=== PATIENT | female | born 1995 | race African-American/Black ===

== ENCOUNTER 2017-08-07 08:56 | Inpatient (IN) | payer OTHER ==
[~2017-08-07] VITALS: Ht 160 cm; Wt 76.5 kg
[~2017-08-07 08:56] MED LIST: KEFLEX500 MG PO; NORCO 5/3251 TABLET PO
[2017-08-07 09:27] LABS: BASOPHIL (%) 0.2 % (0-1); BASOPHIL COUNT 0.1 K/uL (0-0.1); EOSINOPHIL (%) 0.1 % (0-5); IMMATURE GRANULOCYTE (%) 1.2 % (0.0-0.7); LYMPHOCYTE (%) 2.7 % (15-42); LYMPHOCYTE COUNT 1.1 K/uL (1.0-2.8); MONOCYTE (%) 2.5 % (3-12); NEUTROPHIL (%) 93.3 % (45-76); NEUTROPHIL COUNT 39.1 K/uL (1.8-6.4); PLATELET COUNT 349 K/uL (156-360)
[2017-08-07 09:32] LABS: HEMOGLOBIN 11.3 G/DL (11.9-15.5); MCH 24.5 PG (29.0-34.0); MCHC 31.4 G/DL (30.0-36.0); MCV 78.1 FL (83-99); RBC DIS.WIDTH-CV 16.7 % (11.8-14.6); RBC DIS.WIDTH-SD 47.2 % (39-53); RED BLOOD COUNT 4.61 M/uL (3.80-5.20)
[2017-08-07 09:37] LABS: ALBUMIN 4.1 g/dL (3.2-4.8); CHLORIDE 102 mEq/L (99-109); POTASSIUM 4.3 mEq/L (3.7-5.4); SODIUM 140 mEq/L (136-147)
[2017-08-07 09:40] LABS: GLUCOSE 118 mg/dL (70-99); TOTAL PROTEIN 7.9 g/dL (6.4-8.3)
[2017-08-07 09:42] LABS: TOTAL BILIRUBIN 0.3 mg/dL (0.0-1.0)
[2017-08-07 09:43] LABS: ALKALINE PHOSPHATASE 77 IU/L (3-129); CREATININE 0.9 mg/dL (0.6-1.3); GFR ESTIMATE (CALCULATED) > 59 mL/min/
[2017-08-07 09:44] LABS: UREA NITROGEN (BUN) 6 mg/dL (9-23)
[2017-08-07 09:45] LABS: AST (GOT) 42 IU/L (2-34)
[2017-08-07 09:46] LABS: ALT (GPT) 21 IU/L (3-49)
[2017-08-07 11:04] LABS: WHITE BLOOD COUNT 41.9 K/uL (4.1-10.2)
[2017-08-07 11:37] LABS: APPEARANCE SL.HAZY ((CLEAR)); BILIRUBIN NEGATIVE; BLOOD LARGE; COLOR YELLOW ((YELLOW)); GLUCOSE (STRIP) NEGATIVE; KETONES 5; LEUKOCYTES SMALL; NITRITE NEGATIVE; PROTEIN (STRIP) 30; SPECIFIC GRAVITY 1.017 (1.000-1.030)
[2017-08-07 11:48] LABS: BACTERIA RARE /HPF; EPITHELIAL CELLS 1+ /HPF; MUCUS TRACE /LPF; RED BLOOD CELLS 0-5 /HPF (0-5); UCUL ADDED? YES
[2017-08-07 21:25] VITALS: BP 125/60
[2017-08-08] VITALS (7 sets, daily range): BP systolic 94–147; BP diastolic 52–77
[2017-08-08 06:41] LABS: CHLORIDE 107 MEQ/L (99-109); CREATININE 0.6 MG/DL (0.6-1.3); GFR ESTIMATE (CALCULATED) > 59 mL/min/; GLUCOSE 94 mg/dL (70-99); SODIUM 138 MEQ/L (136-147); UREA NITROGEN (BUN) 5 mg/dL (9-23)
[2017-08-08 06:45] LABS: HEMATOCRIT 30.3 % (36.0-46.0); MCHC 30.7 G/DL (30.0-36.0); MCV 78.3 FL (83-99); PLATELET COUNT 300 K/uL (156-360); RBC DIS.WIDTH-SD 48.2 % (39-53); RED BLOOD COUNT 3.87 M/uL (3.80-5.20); WHITE BLOOD COUNT 11.1 K/uL (4.1-10.2)
[2017-08-08 06:47] LABS: HEMOGLOBIN 9.3 G/DL (11.9-15.5)
[2017-08-08 13:53] LABS: CREATINE KINASE 251 IU/L (1-294)
[2017-08-09 01:03] VITALS: BP 96/55
[2017-08-09 04:59] VITALS: BP 108/51
[2017-08-09 06:05] LABS: HEMATOCRIT 33.2 % (36.0-46.0); HEMOGLOBIN 10.4 G/DL (11.9-15.5); MCH 24.2 PG (29.0-34.0); MCHC 31.3 G/DL (30.0-36.0); MCV 77.4 FL (83-99); PLATELET COUNT 330 K/uL (156-360); RBC DIS.WIDTH-CV 17.1 % (11.8-14.6); RBC DIS.WIDTH-SD 48.2 % (39-53); RED BLOOD COUNT 4.29 M/uL (3.80-5.20); WHITE BLOOD COUNT 9.6 K/uL (4.1-10.2)
[2017-08-09 06:38] LABS: CHLORIDE 105 MEQ/L (99-109); CREATININE 0.6 MG/DL (0.6-1.3); GFR ESTIMATE (CALCULATED) > 59 mL/min/; GLUCOSE 90 mg/dL (70-99); POTASSIUM 4.1 MEQ/L (3.7-5.4); SODIUM 137 MEQ/L (136-147); UREA NITROGEN (BUN) 5 mg/dL (9-23)
[2017-08-09 07:15] VITALS: BP 103/54
[2017-08-09 11:30] VITALS: BP 116/75
[2017-08-09] MEDS ORDERED: ZYVOX600 MG PO (14:02)
== END 2017-08-09 14:53 | disposition home or self-care (01) | DRG 917 ==
LOC: EME 08:56 → EDOF 14:42 → 5WEST 14:42 → EDOF 14:42 → ENRESERV 14:44 → 5WEST 21:16
PROVIDERS: Internal Medicine; Nurse Practitioner Adult Health; Physician Assistant Medical
DX: T40.1X1A Poisoning by heroin, accidental (unintentional), initial encounter (principal); J69.0 Pneumonitis due to inhalation of food and vomit; R40.20 Unspecified coma; R78.81 Bacteremia; B95.62 Methicillin resistant Staphylococcus aureus infection as the cause of diseases classified elsewhere; L30.9 Dermatitis, unspecified; R00.0 Tachycardia, unspecified; F11.20 Opioid dependence, uncomplicated; F17.210 Nicotine dependence, cigarettes, uncomplicated
CPT/HCPCS: 71045; 71250; 74177; 80048; 80053; 80202; 81003; 82550; 83605; 85025; 85027; 87040; 87077; 87086; 87186; 87801; 93306; 99281; 99285; G0378; J2250; J2543; J3370; J7030; J7050

== ENCOUNTER 2017-09-19 14:28 | Emergency (ER) | payer OTHER ==
[~2017-09-19] VITALS: Ht 160 cm; Wt 69.1 kg
[~2017-09-19 14:28] MED LIST changes: +ZYVOX600 MG PO
[2017-09-19 16:20] LABS: APPEARANCE CLEAR ((CLEAR)); BILIRUBIN NEGATIVE; BLOOD MODERATE; COLOR STRAW ((YELLOW)); GLUCOSE (STRIP) NEGATIVE; KETONES NEGATIVE; LEUKOCYTES NEGATIVE; NITRITE NEGATIVE; PROTEIN (STRIP) NEGATIVE; SPECIFIC GRAVITY 1.004 (1.000-1.030); UROBILINOGEN 0.2 MG/DL (0.2-1.0)
[2017-09-19 16:28] LABS: BACTERIA RARE /HPF; EPITHELIAL CELLS RARE /HPF; MUCUS TRACE /LPF; RED BLOOD CELLS 0-5 /HPF (0-5); UCUL ADDED? NO; WHITE BLOOD CELLS 0-5 /HPF (0-5)
[2017-09-19] MEDS ORDERED: MOTRIN600 MG PO (16:45)
[2017-09-19 16:53] VITALS: BP 120/77
== END 2017-09-19 16:54 | disposition home or self-care (01) ==
LOC: EME 14:28
PROVIDERS: Nurse Practitioner Family
DX: M54.5 Low back pain (principal); M62.830 Muscle spasm of back; V49.50XA Passenger injured in collision with unspecified motor vehicles in traffic accident, initial encounter; Y92.410 Unspecified street and highway as the place of occurrence of the external cause; F32.9 Major depressive disorder, single episode, unspecified; F41.9 Anxiety disorder, unspecified; E03.9 Hypothyroidism, unspecified; F17.200 Nicotine dependence, unspecified, uncomplicated
CPT/HCPCS: 72100; 81003; 81025; 99281; 99285; J1885

== ENCOUNTER 2017-10-25 23:07 | Emergency (ER) | payer OTHER ==
[~2017-10-25] VITALS: Ht 160 cm; Wt 72.7 kg
[~2017-10-25 23:07] MED LIST changes: +MOTRIN600 MG PO
[2017-10-26 04:28] VITALS: BP 105/68
== END 2017-10-26 04:55 | disposition home or self-care (01) ==
LOC: EME 23:07
DX: T40.601A Poisoning by unspecified narcotics, accidental (unintentional), initial encounter (principal); R00.0 Tachycardia, unspecified; R94.31 Abnormal electrocardiogram [ECG] [EKG]; E03.9 Hypothyroidism, unspecified; F41.9 Anxiety disorder, unspecified; F32.9 Major depressive disorder, single episode, unspecified; F17.200 Nicotine dependence, unspecified, uncomplicated; Z98.890 Other specified postprocedural states
CPT/HCPCS: 93005; 99281; 99284